=== PATIENT | male | born 1990 | race Two or more races ===

== ENCOUNTER 2017-04-23 19:19 | Emergency (ER) | payer SELFPAY | END 2017-04-23 20:50 | disposition home or self-care (01) | LOC: D.ER 19:19 | DX: S16.1XXA Strain of muscle, fascia and tendon at neck level, initial encounter (principal); V43.52XA Car driver injured in collision with other type car in traffic accident, initial encounter; Y93.89 Activity, other specified; Y92.410 Unspecified street and highway as the place of occurrence of the external cause; I10 Essential (primary) hypertension ==

== ENCOUNTER 2017-05-06 17:10 | Emergency (ER) | payer SELFPAY | END 2017-05-06 19:07 | disposition home or self-care (01) | LOC: D.ER 17:10 | DX: S16.1XXA Strain of muscle, fascia and tendon at neck level, initial encounter (principal); V49.9XXA Car occupant (driver) (passenger) injured in unspecified traffic accident, initial encounter; Y93.89 Activity, other specified; Y92.410 Unspecified street and highway as the place of occurrence of the external cause; I10 Essential (primary) hypertension ==

== ENCOUNTER 2017-09-23 18:20 | Emergency (ER) | payer MEDICAID | END 2017-09-23 21:54 | disposition home or self-care (01) | LOC: D.ER 18:20 | DX: S02.2XXA Fracture of nasal bones, initial encounter for closed fracture (principal); S02.401A Maxillary fracture, unspecified side, initial encounter for closed fracture; W22.8XXA Striking against or struck by other objects, initial encounter; Y93.89 Activity, other specified; Y92.89 Other specified places as the place of occurrence of the external cause ==